=== PATIENT | male | born 1980 | race Hispanic/Latino ===

== ENCOUNTER 2016-10-29 11:11 | Emergency (ER) | payer SELFPAY ==
[~2016-10-29] VITALS: Ht 177.8 cm; Wt 79.5 kg
[2016-10-29 11:13] VITALS: BP 132/81; PULSE 69; RESP 16; O2SAT 100
--- NOTE | 2016-10-29 11:17 | ED.REPORT ---
HPI-Abd Pain M Under 41 Date of Service Oct 29, 2016 ED Provider: Ede Dang MD Patient is a 36 year old male who presents to the ED complaining of right flank pain onset 0800 this morning. Associated symptoms include pain that radiates to the right lower quadrant down to the right groin area, dysuria, nausea and vomiting. He denies diarrhea, hematochezia, hematuria or hematemesis. The patient reports that he tried to eat this morning and then vomited. Patient also reports that he is concerned about Chlamydia because the girl he was with last night told him that her ex boyfriend had Chlamydia Nursing Notes Stated Complaint: ABDOMINAL PAIN/NAUSEA Chief Complaint: Male Abdominal Pain Nursing Notes Reviewed: Yes Allergies: Coded Allergies: aspirin (Verified Allergy, Unknown, 10/29/16) Scheduled Tamsulosin (Flomax) 0.4 Mg Capsule 0.4 MG PO DAILY Scheduled PRN Hydrocodone-Acetaminophen 5-325 mg (Hydrocodone-Acetaminophen 5-325 mg) 1 Each Tablet 1 TABLET PO Q4H PRN PRN For Pain Ibuprofen (Ibuprofen) 800 Mg Tablet 800 MG PO TID PRN PRN For Pain General Time Seen by MD: 11:16 Chief Complaint Flank pain right Hx Obtained From: Patient Arrived By: Walk-in Sudden in Onset?: Yes Onset Occurred: 1 - 4 hours ago Symptom Duration: Since onset Location: : Flank right Quality: Aching, Dull Radiation: : Inguinal right: RLQ Severity: Current: Moderate Associated with: Reports: Dysuria, Nausea, Vomiting Exacerbated by: Eating Similar Sx Previous: No Past Medical History Past Medical History none reported Smoking History Unknown if Ever Smoker Social History Alcohol Use: "Social" Other Social History: Good social support Ambulatory Status Independent Review of Systems Constitutional: Denies: Chills, Fever Respiratory: Denies: Non-productive cough, Shortness of breath GI: Reports: Abdominal pain, Nausea, Vomiting, Denies: Diarrhea, Hematemesis, Hematochezia Male: Reports Dysuria, Reports Flank pain, Denies Hematuria Complete sys rev & neg: except as marked. Skin: Denies Itching, Denies Rash Physical Exam Initial Vital Signs Vital Signs (First) Date Time Temp Pulse Resp B/P Pulse Ox O2 Delivery O2 Flow Rate FiO2 10/29/16 11:13 36.4 69 16 132/81 100 Room Air Initial VS: Reviewed General/Constitutional: Awake, Alert Respiratory / Chest: Atraumatic, Breath sounds NL, Breath sounds = bilat, No respiratory distress Cardiovascular: Heart rate NL, Regular rhythm, Heart sounds NL, No murmurs Abdomen: Atraumatic, Soft, No guarding, No rebound mild right lower quadrant discomfort BACK: right CVA tenderness Head / Eyes: Atraumatic, Normocephalic, PERRL, EOMI Neurologic: Oriented X3, Speech NL, No motor deficits, No sensory deficits Upper Extremity / MS: Atraumatic, Full range of motion Lower Extremity / Pelvis / MS: Atraumatic, Full range of motion Skin: Atraumatic, Color NL, No rash, Warm, Dry Psychiatric: Affect NL, Mood NL Interpretation & Diagnostics Lab Results Interpretation Result Diagram: 10/29/16 1130 10/29/16 1130 Test 10/29/16 11:30 10/29/16 12:03 10/29/16 13:26 10/29/16 14:19 White Blood Count 8.3th/mm3 (3.8-10.1) Red Blood Count 5.17mil/mm3 (4.40-5.80) Hemoglobin 15.2g/dL (13.8-17.2) Hematocrit 45.4% (41.0-50.0) Mean Corpuscular Volume 87.8fL (81-100) Mean Corpuscular Hemoglobin 29.4pg (27.0-35.0) Mean Corpuscular Hemoglobin Concent 33.5% (32.0-37.0) Red Cell Distribution Width 13.2% (12.3-15.4) Platelet Count 286bil/L (150-400) Neutrophils (%) (Auto) 76.4% (40-74) Lymphocytes (%) (Auto) 16.5% (14-46) Monocytes (%) (Auto) 5.6% (4-12) Eosinophils (%) (Auto) 0.6% (0-5) Basophils (%) (Auto) 0.4% (0-3) Sodium Level 143mEq/L (134-144) Potassium Level 4.0mEq/L (3.5-5.2) Chloride Level 103mEq/L (97-108) Carbon Dioxide Level 24mmol/L (18-29) Blood Urea Nitrogen 14mg/dL (6-20) Creatinine 1.28mg/dL (0.76-1.27) Estimat Glomerular Filtration Rate 68mL/min (>59) Glucose Level 93mg/dL (60-99) Calcium Level 9.7mg/dL (8.5-10.1) Magnesium Level 2.0mg/dL (1.6-2.6) Total Bilirubin 0.4mg/dL (0.0-1.2) Aspartate Amino Transf (AST/SGOT) 17U/L (0-50) Alanine Aminotransferase (ALT/SGPT) 14U/L (0-44) Alkaline Phosphatase 82U/L (25-150) Total Protein 7.4g/dL (6.4-8.4) Albumin 4.6g/dL (3.4-5.0) Lipase 29U/L (13-60) Urine Ictotest Negative (Negative) Urine Color Dark yellow (YELLOW) Urine Appearance Turbid (CLEAR,HAZY) Urine pH 6.0 (5.0-8.0) Urine Specific [place] 1.020 (1.003-1.035) Urine Protein 100mg/dL (NEG,TRACE) Urine Glucose (UA) Negativemg/dL (NEGATIVE) Urine Ketones Tracemg/dL (NEGATIVE) Urine Occult Blood Large (NEGATIVE) Urine Nitrite Negative (NEGATIVE) Urine Bilirubin Negative (NEGATIVE) Urine Urobilinogen Normalmg/dL (NORMAL) Urine Leukocyte Esterase Trace (NEGATIVE) Urine RBC Packed/hpf (0-2) Urine WBC 6-10/hpf (0-5) Urine Epithelial Cells Few/hpf (NONE-MOD) Urine Crystals None seen (NONE SEEN) Urine Bacteria Few/hpf (NONE-FEW) Urine Hyaline Casts None/lpf (NONE) Urine Granular Casts None seen (NONE SEEN) Urine Waxy Casts None seen (NONE SEEN) Urine Red Blood Cell Casts None seen (NONE SEEN) Urine White Blood Cell Casts None seen (NONE SEEN) Urine Mucus None seen (None Seen) Urine Trichomonas None seen (NONE SEEN) Urine Yeast None (NONE SEEN) Urinalysis Comment None Urine Culture Reflexed Indicated Hold Urine Received (Received) CT Abd / Pelvis Interpretation IMPRESSION: 2 mm distal right ureteral stone causing mild right hydronephrosis and hydroureter. No other stones are seen in the kidneys ureters or bladder. Remainder of the CT KUB is considered normal. Dictated by: Mikie Rose M.D. on 10/29/2016 at 12:46 report was called to ER clinician at the time of this dictation. Approved by: Mikie Rose M.D. on 10/29/2016 at 12:50 Interpretation / Wet Read by: Interpret - Radiologist Re-Eval/Medical Decision Med Decision/Clinical Course 36-year-old male presenting with right flank pain and right lower quadrant pain onset earlier today. CT KUB shows 2 mm distal right ureteral stone. Initial urine suggests possible UTI. In an out cath shows 6-10 white blood cells few bacteria. Controlled. His white blood cell count is normal. Discussed patient with Dr. Pang urology who thought urine not suggestive of infection and recommended discharge with Flomax return precautions. Follow up urology. Patient also reports recent chlamydia exposure. He had no discharge. The urine was sent for chlamydia. He was treated with Rocephin and azithromycin to cover for Chlamydia exposure. Re-Evaluation/Progress #1: Time of Eval: 13:10 Re-Evaluation/Progress Note: Discussed CT results and plan for repeat urine dip. Re-Evaluation/Progress #2: Time of Eval: 15:03 Patient Status: Pain improved Re-Evaluation/Progress #3: Time of Eval: 15:44 Re-Evaluation/Progress Note: Discussed labs and plan for discharge. Patient understands and agrees to plan. All questions were addressed. Consultation : Referral / Consult Name: Delia Roberson MD Consulted With: Urology Call Returned at: 15:37 Note: Consult with Dr. Roberson, who recommends the patient be discharged. She is not concerned with infection. Counseled Regarding: Diagnosis, Lab results, Need for follow-up, When/why to return to ED Patient Discharge & Departure Primary Impression: Hydronephrosis Hydronephrosis type: unspecified Qualified Code: N13.30 - Unspecified hydronephrosis Additional Impression: Exposure to chlamydia Disposition: Home Discharge Condition All VS Reviewed: Yes Condition: Stable Patient Instructions: Chlamydia (ED), Kidney Stones (ED) Additional Instructions: Your CT scan showed evidence of a kidney stone. This should pass on its own. You can take 1-2 [place] every 6 hours as needed for severe pain. Do not drink alcohol or drive while taking the pain medication. Do not combine with Acetaminophen. Follow up with your primary care physician next week. Follow up with the referred urologist in 1-2 days. Return to the emergency department if you develop any new or concerning symptoms nausea, vomiting or fever. Referrals: Delia Roberson MD [facility] Aide Attestation Portions of this note were transcribed by Анна Coburn. I, Dr. Dang personally performed the history, physical exam and medical decision-making; I reviewed and confirmed the accuracy of the information in the transcribed note. Signed by: Aide Grant, 10/29/16 copies to: Delia Roberson MD; [facility] Ede Dang MD Oct 29, 2016 11:17 Alyssa Coburn Oct 29, 2016 11:37
[2016-10-29] MEDS ORDERED: 0.9% Sodium Chloride 1,000 ML IV ONE (11:32)
[2016-10-29 11:43] LABS: BASOPHILS % (AUTO) 0.4 % (0-3); EOSINOPHILS % (AUTO) 0.6 % (0-5); MONOCYTES % (AUTO) 5.6 % (4-12); Mean Corpuscular Hemoglobin 29.4 pg (27.0-35.0); Mean Corpuscular Volume 87.8 fL (81-100); NEUTROPHILS % (AUTO) 76.4 % (40-74); Platelet Count 286 bil/L (150-400)
[2016-10-29] MEDS: Ondansetron 2 mg/mL 2 mL Inj IVPUSH PRN ×3 (11:57→13:10)
--- NOTE | 2016-10-29 12:53 | DRSVH ---
PROCEDURE: CT KUB ([id number]) INDICATIONS: RLQ pain, R flank pain TECHNIQUE: Noncontrast 5 mm thick sections acquired from the diaphragms to the symphysis. 5 mm thick coronal an d sagittal reformats were then performed. For radiation dose reduction, the following was used: aut omated exposure control, adjustment of mA and/or kV according to patient size. COMPARISON: None. FINDINGS: Image quality: Excellent. Lung bases: Lung bases are clear. Heart size is normal. Urinary system: Both kidneys are normal in size. There is a 2 mm kidney stone in the distal right u reter approximately 1.5 cm from the bladder. No other stones are seen in either kidney ureter or blad tan. The stone causes mild right hydronephrosis and hydroureter.. Bladder wall thickness is normal; no calcified bladder stones. Other solid organs: Liver and spleen are normal in size. Gallbladder is within normal limits.. Mata creas is normal in contours. No adrenal nodules. Peritoneum and bowel: Unenhanced bowel loops demonstrate normal wall thickness and caliber. No free fluid or air. The appendix is normal. Nodes and vessels: No retroperitoneal or mesenteric adenopathy by size criteria. Aorta and inferior vena cava are normal in caliber. Abdominal wall: No ventral hernias. Pelvis: No free pelvic fluid. No inguinal hernias or adenopathy. Bones: No suspicious bony lesions. No vertebral body compression fractures. . IMPRESSION: 2 mm distal right ureteral stone causing mild right hydronephrosis and hydroureter. No other stones are seen in the kidneys ureters or bladder. Remainder of the CT KUB is considered nor mal. Dictated by: Mikie Rose M.D. on 10/29/2016 at 12:46 report was called to ER clinician at the [facility] this dictation. Approved by: Mikie Rose M.D. on 10/29/2016 at 12:50
[2016-10-29 13:00] LABS: APPEARANCE,URINE CLOUDY (CLEAR,HAZY); COLOR,URINE YELLOW (YELLOW)
[2016-10-29 13:01] LABS: OCCULT BLOOD,URINE LARGE (NEGATIVE); UROBILINOGEN,URINE NORMAL (NORMAL)
[2016-10-29 13:04] LABS: ICTOTEST,URINE NEGATIVE (Negative)
[2016-10-29] MEDS ORDERED: Lidocaine 2% 5 mL Topical Jelly ONE (13:48)
[2016-10-29 14:40] LABS: APPEARANCE,URINE TURBID (CLEAR,HAZY); COLOR,URINE DARK YELLOW (YELLOW)
[2016-10-29 14:42] LABS: OCCULT BLOOD,URINE LARGE (NEGATIVE); UROBILINOGEN,URINE NORMAL (NORMAL)
[2016-10-29 15:06] LABS: APPEARANCE,URINE TURBID (CLEAR,HAZY); COLOR,URINE DARK YELLOW (YELLOW); OCCULT BLOOD,URINE LARGE (NEGATIVE); UROBILINOGEN,URINE NORMAL (NORMAL)
[2016-10-29] MEDS ORDERED: HYDR-4003 PO (15:42)
[2016-10-29] MEDS ORDERED: IBUP800T28 PO (15:42)
[2016-10-29] MEDS ORDERED: TAMS0.4C98 PO (15:42)
[2016-10-29] MEDS ORDERED: cefTRIAXone Inj 250 MG, Lidocaine PF 1% Inj 0.9 ML in Syringe 1 EACH IM ONE (15:50)
[2016-10-29] MEDS ORDERED: cefTRIAXone 1,000 mg Inj IM ONE (16:20)
[2016-10-29] MEDS ORDERED: cefTRIAXone 1,000 mg Inj IV ONE (16:20)
[2016-10-29 16:39] VITALS: BP 120/77; PULSE 69; RESP 20; O2SAT 100
== END 2016-10-29 16:40 | disposition home or self-care (01) ==
LOC: SED 11:11
DX: N13.30 Unspecified hydronephrosis (principal); B96.20 Unspecified Escherichia coli [E. coli] as the cause of diseases classified elsewhere; Z20.2 Contact with and (suspected) exposure to infections with a predominantly sexual mode of transmission; Z88.6 Allergy status to analgesic agent
CPT/HCPCS: 36415; 74176; 80053; 81000; 83690; 83735; 85025; 87040; 87086; 87088; 87186; 87491; 87591; 96361; 96372; 96374; 96375; 99285; J0696; J1885; J2270; J2405; J7030